=== PATIENT | female | born 1950 | race Caucasian/White ===

== ENCOUNTER → 2021-03-08 | Emergency (ER) | payer MEDICARE, OTHER ==
[~2021-03-08] VITALS: Ht 165.1 cm; Wt 125.2 kg
[~2021-03-08] MED LIST: ACYC-108 PO; ACYCLOVIR 500 MG VIAL IV ONE; CLIN300C12 PO; CLINDAMYCIN PHOSPHATE 600 MG/4 ML VIAL ONE; LIDOCAINE 2%-EPI 1:100,000 20 ML VIAL ONE; MAGNESIUM CITRATE 296 ML BOTTLE ONE; NITROFURANTOIN/NITROFURAN MAC 100 MG CAPSULE PO ONE
--- NOTE | 2021-03-08 15:25 | NUR ---
at bedside for MSE at this time
[2021-03-08 15:53] LABS: HEMATOCRIT 34.6 % (31.2-41.9); MEAN CORPUSCULAR HEMOGLOBIN 29.8 uug (24.7-32.8); MEAN CORPUSCULAR VOLUME 85.7 fL (75.5-95.3); PLATELET COUNT (AUTO) 158 K/uL (179-408)
[2021-03-08 15:59] LABS: CREATININE 1.1 mg/dL (0.6-1.3); POTASSIUM 3.1 mmol/L (3.5-5.1)
[2021-03-08 16:05] LABS: BILIRUBIN,DIRECT 0.4 mg/dL (0.0-0.2); BILIRUBIN,TOTAL 1.6 mg/dL (0.2-1.0); TOTAL PROTEIN, SERUM 7.9 g/dL (6.4-8.2)
[2021-03-08] MEDS: ACYCLOVIR IV 500 MG in IV DEXTROSE 5% 100 ML IV ONE (16:45)
--- NOTE | 2021-03-08 18:03 | NUR ---
Acyclovir IV finished infusing at this time.
--- NOTE | 2021-03-08 18:05 | NUR ---
Patient is resting comfortably in bed speaknig on the phone with family and friends
--- NOTE | 2021-03-08 18:07 | NUR ---
Called [facility] for transfer, spoke with lynne supervisor machining Radha. [employer]Sheet faxed to [phone] as requested.
--- NOTE | 2021-03-08 18:23 | NUR ---
Received telephone call from Radha from [facility], she stated pt has been accepted, pt will be going to room 217 post 1999 today, call [phone] for report.
--- NOTE | 2021-03-08 18:30 | NUR ---
Called [facility] for transport, eta for order picker/assembler is 2030.
--- NOTE | 2021-03-08 19:00 | NUR ---
Received telehpone call from Radha, she stated to notifiy about the transfer as he is professional fee coder for [facility]. Called [facility] who stated they will page . ([facility]) notified.
--- NOTE | 2021-03-08 19:12 | NUR ---
Report given to Vargas PARKINSON
--- NOTE | 2021-03-08 19:45 | NUR ---
Patient requested a warm blanket, was given, inquired about any other needs the patient had she stated none at this time.
[2021-03-08] MEDS: CLINDAMYCIN PHOSPHATE IV 600 MG in IV DEXTROSE 5% 100 ML IV ONE (20:04)
--- NOTE | 2021-03-08 20:32 | NUR ---
Patient's 22g IV angiocath was accidently dislodged by patient. Replaced with 22g IV R wrist. Restarted antiobiotics.
[2021-03-08] MEDS: VANCOMYCIN IV 750 MG in IV DEXTROSE 5% 150 ML IV ONE (21:10)
--- NOTE | 2021-03-08 22:00 | NUR ---
[facility] BLS unit 235 arrived to transport patient to [facility]. Providing report to TAMMY Chauhan.
--- NOTE | 2021-03-08 23:21 | NUR ---
-Patient refuses transport to [facility] to be in a negative pressure room. -Patient refuses to be monitored by [facility] nurses/physicians and [facility] nurses/physicians. -Patient refuses to receive any more medical/nursing care once her antibiotics infused and wishes to go home. Patient was explained in detail by myself, MD Tovar, and nursing supervisor research kennel Hemanth that by refusing everything above that she is going against medical advice. Regardless, she refuses to sign the AMA form. She demands that it be listed as "discharge" when it was explained to her many times that by going against the physician's advice, she is technically leaving the hospital, "AMA."
--- NOTE | 2021-03-08 23:35 | NUR ---
Patient is very rude, disrespectful, yells at me, demands that I leave the room, when I asked her how she would like to go home: if she is trying to arranging transportation for herself or would like me to arrange it for her.
--- NOTE | 2021-03-08 23:52 | NUR ---
[facility] [employer] dispatcher Jess contacted for ambulance transport of patient to home. States ETA of unit will be two hours from now.
--- NOTE | 2021-03-09 00:20 | NUR ---
Patient is A&Ox4. Patient requested to use the restroom. Brought bedside commode to patient. Offered to assist patient in using the commode, patient stated that she can do it herself and wanted to have privacy. She then fell on her buttocks onto the floor. TESHA Tucker and I assisted her back up. And the patient wanted to be placed onto the commode again to finish going to the restroom.
--- NOTE | 2021-03-09 00:25 | NUR ---
Patient is A&Ox4, refused to have a doctor examine her after her fall. Denies pain after the fall. Does not want any medical care at this time. She requested to rest on the bed, and is waiting for her ride home.
--- NOTE | 2021-03-09 01:26 | NUR ---
Patient does not wish to proceed with medical care recommended by Dr. Tovar. Patient given information related to possible complications, up to and including , which could occur as a result of leaving the hospital at this time. Patient verbalizes understanding of risks involved with this plan. Patient is leaving against medical advice, refused to sign AMA form. [facility] ambulance unit 340 arrived to berry picker the patient, report given to them. Patient was given paper Rx by MD Tovar, Patient ambulates with steady gait, V/S stable, IV line removed, and left with all personal belongings.
[2021-03-09 01:37] VITALS: BP 120/66
--- NOTE | 2021-03-09 05:08 | NUR ---
Fall incident report completed on patient, ID for the incident report is [id number].
== END | disposition left against medical advice (07) ==
LOC: ER 15:24
DX: B02.7 Disseminated zoster (principal); J98.4 Other disorders of lung; Z20.822 Contact with and (suspected) exposure to COVID-19; Z53.29 Procedure and treatment not carried out because of patient's decision for other reasons
CPT/HCPCS: 36415; 71045; 80048; 80076; 83605; 84145; 84484; 85025; 85730; 87426; 96365; 96366 ×2; 96367; 99285; J0133; J3370; J3490; J7060 ×2; 70030-TC; A4663

== ENCOUNTER 2023-07-10 23:01 | Emergency (ER) | payer MEDICARE, OTHER ==
[~2023-07-10] VITALS: Ht 165.1 cm; Wt 108.9 kg
[~2023-07-10 23:01] MED LIST changes: -ACYCLOVIR 500 MG VIAL IV ONE; -CLINDAMYCIN PHOSPHATE 600 MG/4 ML VIAL ONE; -LIDOCAINE 2%-EPI 1:100,000 20 ML VIAL ONE; -MAGNESIUM CITRATE 296 ML BOTTLE ONE; -NITROFURANTOIN/NITROFURAN MAC 100 MG CAPSULE PO ONE
[2023-07-11 00:17] LABS: BASOPHILS # (AUTO) 0.1 K/UL (0.0-0.2); BASOPHILS % (AUTO) 1.7 % (0.0-2.0); HEMATOCRIT 35.8 % (31.2-41.9); HEMOGLOBIN 11.9 g/dL (10.9-14.3); LYMPHOCYTES # (AUTO) 1.3 K/uL (0.8-4.8); MEAN CORPUSCULAR HGB CONC 33 g/dL (32.3-35.6); MEAN CORPUSCULAR VOLUME 83.9 fL (75.5-95.3); MONOCYTES # (AUTO) 0.3 K/uL (0.1-1.30); MONOCYTES % (AUTO) 7.4 % (0.0-11.0); NEUTROPHILS # (AUTO) 2.6 K/uL (1.8-8.9); NEUTROPHILS % (AUTO) 59.9 % (38.5-71.5); PLATELET COUNT (AUTO) 158 K/uL (179-408); RED BLOOD CELL COUNT(AUTO) 4.26 MIL/uL (3.63-4.92); WHITE BLOOD COUNT (AUTO) 4.4 K/uL (3.8-11.8)
[2023-07-11 00:19] LABS: DIFFERENTIAL COMMENT 1
[2023-07-11 00:22] LABS: CALCIUM 9.1 mg/dL (8.5-10.1); CARBON DIOXIDE 28 mmol/L (21-32); CHLORIDE 100 mmol/L (98-107); GLUCOSE 131 mg/dL (74-106); POTASSIUM 3.7 mmol/L (3.5-5.1); SODIUM SERUM 139 mmol/L (136-145); UREA NITROGEN, BLOOD 17 mg/dL (7-18)
[2023-07-11 00:35] LABS: ALANINE AMINOTRANSFERASE 25 U/L (14-59); ALBUMIN 3.9 g/dL (3.4-5.0); ALKALINE PHOSPHATASE 105 U/L (50-136); ASPARTATE AMINOTRANSFERASE 12 U/L (15-37); BILIRUBIN,DIRECT 0.2 mg/dL (0.0-0.2); BILIRUBIN,TOTAL 1.3 mg/dL (0.2-1.0); NT-PRO BNP 624 pg/mL (0-125); TOTAL PROTEIN, SERUM 7.7 g/dL (6.4-8.2)
[2023-07-11 01:51] VITALS: BP 128/70; TEMP 99; O2SAT 95
== END 2023-07-11 01:51 | disposition home or self-care (01) ==
LOC: ER 23:02
DX: R00.2 Palpitations (principal); I50.9 Heart failure, unspecified; I48.91 Unspecified atrial fibrillation; Z88.8 Allergy status to other drugs, medicaments and biological substances; Z79.2 Long term (current) use of antibiotics; Z79.899 Other long term (current) drug therapy
CPT/HCPCS: 36415; 71045; 83735; 84484; 85025; 93005; A4606; A4663